=== PATIENT | female | born 1945 | race Caucasian/White ===

== ENCOUNTER → 2016-04-23 | Outpatient (CLI) | payer OTHER ==
--- NOTE | 2016-04-26 13:32 | MAMMOGRAPHY REPORT ---
BILATERAL DIGITAL SCREENING MAMMOGRAM WITH CAD: 04/23/2016 TECHNIQUE: Current study was also evaluated with a Computer Aided Detection (CAD) system. Bilatera l CC and MLO views were obtained. COMPARISON: Comparison is made to exams dated: 11/21/2013 mammogram, 11/11/2010 mammogram - [facility], 11/05/2008, 11/15/2011 mammogram, and 11/10/2009 mammogram - [facility]. BREAST COMPOSITION: There are scattered areas of fibroglandular density in both breasts. FINDINGS: No suspicious masses, calcifications, or areas of architectural distortion are noted in e ither breast. There has been no significant interval change compared to prior exams. IMPRESSION: ACR BI-RADS CATEGORY 1: NEGATIVE There is no mammographic evidence of malignancy. A 1 year screening mammogram is recommended. The p atient will receive written notification of the results. Approximately 10% of breast cancers are not detected with mammography. A negative mammographic repor t should not delay biopsy if a clinically suggestive mass is present. Loreto Lipscomb M.D. ah/:04/23/2016 16:09:32 Donation Specialist: Janina FUNEZ(Frank)(M), [facility] letter sent: Normal 1/2 BI-RADS Code: ACR BI-RADS Category 1: Negative
== END | disposition home or self-care (01) ==
LOC: C.MAMM 10:15
PROVIDERS: ATTEND Nurse Practitioner Family
DX: Z12.31 Encounter for screening mammogram for malignant neoplasm of breast (principal)

== ENCOUNTER 2024-05-29 21:39 | Inpatient (IN) ==
[2024-05-30] MEDS ORDERED: oxyCODONE HCL IR 5 MG TAB (IMMEDIATE RELEASE) PO PRN ×2 (00:28→13:47)
[2024-05-30] MEDS ORDERED: ACETAMINOPHEN 500 MG TAB PO PRN (00:28)
[2024-05-30] MEDS ORDERED: PROMETHAZINE 6.25 MG/50.25 ML BAG IV PRN (00:28)
[2024-05-30] MEDS: Patient's ALLERGY Info needs ENTERED STA (01:23)
[2024-05-30] MEDS ORDERED: HYDROmorphone INJ 0.5 MG/0.5 ML SYR IV PRN ×3 (01:53→13:47)
[2024-05-30 02:05] LABS: Basophils # (auto) 0.03 K/uL (0.00-0.20); Basophils % (auto) 0.3 %; Eosinophils # (auto) 0.12 K/uL (0.00-0.50); Eosinophils % (auto) 1.2 %; Hemoglobin 12.9 g/dl (12.0-16.0); Immature Granulocytes # (auto) 0.04 K/uL (0.01-0.20); Immature Granulocytes % (auto) 0.4 %; Lymphocytes # (auto) 1.33 K/uL (1.20-3.40); Lymphocytes % (auto) 13.3 %; Mean Corpuscular Hemoglobin 30.1 pg (25.0-34.0); Mean Corpuscular Hgb Conc 33.9 g/dL (32.0-36.0); Mean Corpuscular Volume 88.6 fL (80.0-100.0); Mean Platelet Volume 10.8 fL (9.4-12.4); Monocytes # (auto) 1.02 K/uL (0.11-0.59); Monocytes % (auto) 10.2 %; Neutrophils # (auto) 7.46 K/uL (1.40-6.50); Neutrophils % (auto) 74.6 %; Platelet Count 205 K/uL (130-400); RDW Standard Deviation 42.2 fL (36.4-46.3); Red Blood Count 4.29 M/uL (4.20-5.40)
[2024-05-30 02:22] LABS: Albumin Globulin Ratio 1.5 (0.9-2); Albumin Level 3.5 gm/dl (3.4-5.0); BUN Creatinine Ratio 21.4 (10-20); Bilirubin,Total 1.6 mg/dl (0.2-1.0); Calcium 8.9 mg/dl (8.6-10.3); Creatinine Clr Calc Pharmacy 41.7 ml/min; Globulin 2.3 gm/dl (2.5-4.0); Potassium 3.7 mmol/L (3.5-5.1); Total Protein 5.8 gm/dl (6.0-8.3)
[2024-05-30 02:30] LABS: Prothrombin Time 11.1 Seconds (9.0-12.0)
--- NOTE | 2024-05-30 02:38 | XRay Report ---
EXAM: XR chest 1V portable CLINICAL HISTORY: Acute respiratory failure, hyponatremia. TECHNIQUE: An X-ray image of the chest is obtained in AP projection. COMPARISON: No prior studies are available for comparison. FINDINGS: Pulmonary Parenchyma: Exaggerated broncho-vascualr markings bilaterally. No evidence of consolidation, collapse, or focal opacities. No pulmonary nodules are identified. No evidence of pleural effusion or pleural thickening. Heart and Mediastinum: Heart is relatively enlarged. No mediastinal widening or masses. Prominent hilar vasculature. Bony Thorax: Bony thorax appears intact without recent fractures. Right old mid clavicle chronic fracture. Soft Tissues: Soft tissues overlying the chest wall are unremarkable. IMPRESSION: - Exaggerated broncho-vascualr markings bilaterally with Prominent hilar vasculature. may suggest pulmonary congestion. - Mild cardiomegaly. - No consolidation, pneumothorax or pleural effusion. Electronically signed by Baldo Carmona 05-30-2024 02:37 AM
[2024-05-30] MEDS: dilTIAZem HCL 240 MG CAPCR PO SCH (02:46)
--- NOTE | 2024-05-30 03:29 | History & Physical Report ---
Date of Service May 30, 2024 Assessment & Plan (1) Acute pancreatitis: Plan: Biliary pancreatitis Possible calculous cholecystitis Rule out biliary obstruction given abnormal LFTs No sepsis for now hypertension, elevated secondary to illness CRI, possibly chronic anxiety disorder, stable PMR on chronic steroid Rx steroid-induced hyperglycemia rule out DM Admit to medical Zosyn for possible cholecystitis Bowel rest GI consult RE pancreatitis (ED provider already in touch with Dr. Fink who recommends MRCP and General Surgery consultation upon arrival at [facility].) Analgesia, facilitate Cardizem for BP control Hold home diuretic until baseline creatinine established Continue daily prednisone dose, watch out for adrenal insufficiency Check hemoglobin A1c DVT prophylaxis. SCDs re: possible procedure Full code Patient requesting for to be given periodic updates regarding care. Mr. Philipp Carson, contact #[phone]. Text document was generated using We[employer] voice recognition software. It may contain grammatical or spelling errors. Kindly contact undersigned for clarification of any documentation item in question. History of Present Illness Chief Complaint: Abdominal pain Primary Care Provider: TROY Nuno History obtained from patient and records. Medical history significant for hypertension, anxiety disorder, PMR on chronic steroid Rx. 1 day history of achy epigastric discomfort with nausea vomiting. Episode precipitated by sauerkraut intake. Similar episodes over the last few years relieved with rest as per patient. No fever, no chills, no chest pain, no SOB. Patient consulted [facility] alejandra. WBC 14.21, hemoglobin 15.2, hematocrit 41.5, platelets 241 Sodium 137, potassium 5.2, chloride 102, CO2 25, BUN 31, creatinine 1.28, glucose 132 Elevated LFTs and lipase noted. AST 124, ALT 114, alk phos [address] abdomen pelvis showed mild gallbladder wall thickening, small hiatal hernia, diverticulosis without diverticulitis. Right upper quadrant ultrasound showed distended gallbladder with multiple ga llstones and sludge. Mild pericholecystic fluid present with edema in the gallbladder wall measuring 6 mm. CBD measuring 3 mm. Trevino sign not documented. IV Zosyn administered at the ER. Patient transferred to [facility] for specialty services. Patient currently comfortable. Medical History as above Surgical History : Back surgery, tonsillectomy, hysterectomy Family History :DM, heart disease Personal/Social history : Non-smoker, no EtOH intake, retired [employer] employee Allergies Allergy/AdvReac Type Severity Reaction Status Date / Time ciprofloxacin [From Cipro] Allergy Intermediate Itching Verified 05/30/24 06:27 NSAIDS (Non-Steroidal AdvReac Intermediate Chest Pain Verified 05/30/24 01:04 Anti-Inflamma Home Medications Medication Instructions Recorded Confirmed Type citalopram 20 mg tablet 20 mg PO DAILY 05/30/24 05/30/24 History diltiazem HCl 240 mg 240 mg PO DAILY 05/30/24 05/30/24 History capsule,extended release 24 hr ezetimibe 10 mg tablet 10 mg PO DAILY 05/30/24 05/30/24 History hydrochlorothiazide 25 mg tablet 25 mg PO DAILY 05/30/24 05/30/24 History prednisone 5 mg tablet 5 mg PO DAILY 05/30/24 05/30/24 History Past Med/Surg History Problem List (Updated 05/30/24 @ 06:34 by Louie Berrios MD) Acute pancreatitis Cholecystitis with cholelithiasis Social History Smoking Status: Never smoker Tobacco Type: Declines Second Hand Exposure: No; Do You Dip or Chew Tobacco: No; Tobacco Cessation Education Requested by Patient: No Hx Alcohol Use: No Hx Substance Use: No Preferred Language: Hebrew Communication Ability: Effective Ratings Analyst Required: No Beliefs That Will Affect Care: None Current Living Situation: Alone Other Information That Helps Us Care for You: No Feels Safe at Home: Yes Safety Concerns: Feels Safe At This Time Assistive Devices: None Review of Systems Review of Systems: As per HPI, all other systems reviewed and negative Physical Exam Physical Exam: GENERAL: Comfortable, pleasant, obese, no respiratory distress SKIN: Normal color, warm HEENT: [place] palpebral conjunctivae, no ptosis, dry buccal mucosa NECK : Supple, short neck, no tenderness CHEST : CTA, no tenderness HEART : RRR, no obvious murmurs ABDOMEN: Some distention, epigastric tenderness EXTREMITIES : Chronic bilateral LE swelling without tenderness, palpable pulses, no other conspicuous deformities noted NEUROLOGIC : Coherent, no facial asymmetry, no other gross focality Results & Data Results & Data Vital Signs (Past 12 Hours) Vital Signs Temp Pulse Resp BP Pulse Ox O2 Del Method 36.6 C 66 18 167/90 H 95 Room Air 05/30/24 00:25 05/30/24 00:25 05/30/24 00:25 05/30/24 00:25 05/30/24 00:25 05/30/24 00:25 Laboratory Results Laboratory Results WBC 10.00 K/ul (4.8-10.8) 05/30/24 01:45 RBC 4.29 M/uL (4.20-5.40) 05/30/24 01:45 Hgb 12.9 g/dl (12.0-16.0) 05/30/24 01:45 Hct 38.0 % (37.0-47.0) 05/30/24 01:45 MCV 88.6 fL (80.0-100.0) 05/30/24 01:45 MCH 30.1 pg (25.0-34.0) 05/30/24 01:45 MCHC 33.9 g/dL (32.0-36.0) 05/30/24 01:45 RDW Std Deviation 42.2 fL (36.4-46.3) 05/30/24 01:45 RDW Coeff of Danyel 13.0 % (11.5-14.5) 05/30/24 01:45 Plt Count 205 K/uL (130-400) 05/30/24 01:45 MPV 10.8 fL (9.4-12.4) 05/30/24 01:45 Immature Gran % (Auto) 0.4 % 05/30/24 01:45 Neut % (Auto) 74.6 % 05/30/24 01:45 Lymph % (Auto) 13.3 % 05/30/24 01:45 Sully % (Auto) 10.2 % 05/30/24 01:45 Eos % (Auto) 1.2 % 05/30/24 01:45 Baso % (Auto) 0.3 % 05/30/24 01:45 Neut # (Auto) 7.46 K/uL (1.40-6.50) H 05/30/24 01:45 Lymph # (Auto) 1.33 K/uL (1.20-3.40) 05/30/24 01:45 Sully # (Auto) 1.02 K/uL (0.11-0.59) H 05/30/24 01:45 Eos # (Auto) 0.12 K/uL (0.00-0.50) 05/30/24 01:45 Baso # (Auto) 0.03 K/uL (0.00-0.20) 05/30/24 01:45 Immature Gran # (Auto) 0.04 K/uL (0.01-0.20) 05/30/24 01:45 PT 11.1 Seconds (9.0-12.0) 05/30/24 01:45 INR 1.0 (0.9-1.1) 05/30/24 01:45 Sodium 138 mmol/L (136-145) 05/30/24 01:45 Potassium 3.7 mmol/L (3.5-5.1) 05/30/24 01:45 Chloride 106 mmol/L (98-107) 05/30/24 01:45 Carbon Dioxide 26 mmol/L (21-32) 05/30/24 01:45 Anion Gap 6 (3-11) 05/30/24 01:45 BUN 27 mg/dl (6-23) H 05/30/24 01:45 Creatinine 1.26 mg/dl (0.6-1.2) H 05/30/24 01:45 Est Cr Clr Drug Dosing 41.7 ml/min 05/30/24 01:45 eGFR 43.43 05/30/24 01:45 BUN/Creatinine Ratio 21.4 (10-20) H 05/30/24 01:45 Glucose 117 mg/dl (70-99(Fasting)) H 05/30/24 01:45 Calcium 8.9 mg/dl (8.6-10.3) 05/30/24 01:45 Total Bilirubin 1.6 mg/dl (0.2-1.0) H 05/30/24 01:45 AST 116 U/L (13-39) H 05/30/24 01:45 ALT 151 U/L (7-52) H 05/30/24 01:45 Alkaline Phosphatase 83 U/L (34-104) 05/30/24 01:45 Total Protein 5.8 gm/dl (6.0-8.3) L 05/30/24 01:45 Albumin 3.5 gm/dl (3.4-5.0) 05/30/24 01:45 Globulin 2.3 gm/dl (2.5-4.0) L 05/30/24 01:45 Albumin/Globulin Ratio 1.5 (0.9-2) 05/30/24 01:45 Impressions Chest X-Ray 05/30/24 00:43 EXAM: XR chest 1V portable CLINICAL HISTORY: Acute respiratory failure, hyponatremia. TECHNIQUE: An X-ray image of the chest is obtained in AP projection. COMPARISON: No prior studies are available for comparison. FINDINGS: Pulmonary Parenchyma: Exaggerated broncho-vascualr markings bilaterally. No evidence of consolidation, collapse, or focal opacities. No pulmonary nodules are identified. No evidence of pleural effusion or pleural thickening. Heart and Mediastinum: Heart is relatively enlarged. No mediastinal widening or masses. Prominent hilar vasculature. Bony Thorax: Bony thorax appears intact without recent fractures. Right old mid clavicle chronic fracture. Soft Tissues: Soft tissues overlying the chest wall are unremarkable. IMPRESSION: - Exaggerated broncho-vascualr markings bilaterally with Prominent hilar vasculature. may suggest pulmonary congestion. - Mild cardiomegaly. - No consolidation, pneumothorax or pleural effusion. Electronically signed by Baldo Carmona 05-30-2024 02:37 AM
[2024-05-30] MEDS: LACTATED RINGER'S 1,000 ML IV SCH (03:41)
[2024-05-30] MEDS: PIPERACILLIN/TAZOBACTAM 4.5 GM/100 ML BAG IV SCH (04:52)
--- NOTE | 2024-05-30 05:24 | Surgery Consultation ---
Date of Consultation May 30, 2024 Assessment & Plan (1) Cholecystitis with cholelithiasis: Patient is a 78-year-old female with complaints of epigastric abdominal pain who was worked up at [facility] emergency department and was found to have evidence of cholecystitis. WBC was 14 and T bili was also elevated at 2.3. The patient was transferred to our facility for further workup and surgical evaluation. Repeat labs this morning WBC is 10 and Tbili is starting to downtrend to 1.6. The patient is planned for MRCP imaging this morning to further evaluate for possible choledocholithiasis. If MRCP is positive she will need GI consult for possible ERCP. However, if MRCP is negative will proceed with surgical intervention. For now keep patient NPO, IV hydration, IV antibiotics, and pain control.Final surgical plans to follow pending imaging results. as above. pt already feeling better. MRCP neg for CBD stones. Tbili coming down. rec lap radha. discussed risks/options ( bleeding/infection/injury to a bile duct or other structure/dvt etc...). questions answered. will proceed today with lap radha History of Present Illness Reason for Consultation: Cholecystis History of Present Illness Patient is a 78-year-old female who presented to outside hospital for concerns of abdominal pain. The patient states her pain was in her epigastric region and described the pain as "band-like". She states the pain also radiated into her back and between her shoulders as well. She also had associated nausea and vomiting and ultimately went to [facility] emergency room for further evaluation. Upon workup her WBC was 14 and T bili was elevated at 2.3. Imaging was concerning for cholecystitis. The patient was transferred to our facility for further workup for MRCP and surgical evaluation. The patient was seen and evaluated at bedside this morning, she is resting comfortably in bed, VSS, and is nontoxic appearing. The patient continues with epigastric pain however states is better controlled due to medication. She does have a past abdominal surgical history of a partial hysterectomy. Allergies Allergy/AdvReac Type Severity Reaction Status Date / Time ciprofloxacin [From Cipro] Allergy Intermediate Itching Verified 05/30/24 06:27 NSAIDS (Non-Steroidal AdvReac Intermediate Chest Pain Verified 05/30/24 01:04 Anti-Inflamma Home Medications Medication Instructions Recorded Confirmed Type citalopram 20 mg tablet 20 mg PO DAILY 05/30/24 05/30/24 History diltiazem HCl 240 mg 240 mg PO DAILY 05/30/24 05/30/24 History capsule,extended release 24 hr ezetimibe 10 mg tablet 10 mg PO DAILY 05/30/24 05/30/24 History hydrochlorothiazide 25 mg tablet 25 mg PO DAILY 05/30/24 05/30/24 History prednisone 5 mg tablet 5 mg PO DAILY 05/30/24 05/30/24 History Patient History Social History Smoking Status: Never smoker Tobacco Type: Declines Second Hand Exposure: No; Do You Dip or Chew Tobacco: No; Tobacco Cessation Education Requested by Patient: No Hx Alcohol Use: No Hx Substance Use: No Preferred Language: Gabonese Communication Ability: Effective Mechanical Engineering Technician Required: No Beliefs That Will Affect Care: None Current Living Situation: Alone Other Information That Helps Us Care for You: No Feels Safe at Home: Yes Safety Concerns: Feels Safe At This Time Assistive Devices: None Review of Systems Constitutional: as per Subjective / HPI Respiratory: no cough, no dyspnea and no wheezing Cardiovascular: no chest pain and no palpitations Gastrointestinal: + abdominal pain, + nausea and + vomitin g Genitourinary: no dysuria and no hematuria Physical Exam 2 Constitutional: WD/WN, vitals as above Respiratory: normal respiratory effort, lungs clear to auscultation Cardiovascular: RRR, no murmur, no edema Gastrointestinal (Abdomen): abdomen soft, nondistended, +TTP in the RUQ. No rebound, guarding or peritonitis Skin: no rashes, warm and dry Results & Data Vital Signs (Past 12 Hours) Vital Signs Temp Pulse Resp BP Pulse Ox O2 Del Method 05/30/24 02:45 69 18 119/69 95 Room Air 05/30/24 00:25 36.6 C 66 18 167/90 H 95 Room Air 05/30/24 00:25 36.6 C 66 18 167/90 H 95 Room Air Diagnostic Findings CT imaging was performed at outside hospital with results of: Mild gallbladder wall thickening, small hiatal hernia, diverticulosis without evidence of diverticulitis Gallbladder US was performed at outside hospital with results of: gallbladder is distended with multiple gallstones and sludge. Mild pericholecystic fluid with edema in the gallbladder wall measuring 6mm. PG Care Time/CCT Total # of Minutes Spent Total Time Spent with Patient: Total time spent is greater than 50% in coordination of care (as documented) at patient's floor/unit and/or counseling patient: [place] [address] INT INP/OBS CARE MIN Patient Type New Medical Decision Making Straight Forward Diagnoses Cholecystitis with cholelithiasis K80.10
--- NOTE | 2024-05-30 07:22 | Magnetic Resonance Report ---
EXAM: MR MRCP CLINICAL HISTORY: abd pain TECHNIQUE: Multiplanar multisequence magnetic resonance imaging of the abdomen without intravenous contrast. COMPARISON: None. FINDINGS: Liver: Normal size and morphology. Homogeneous signal intensity on T2-weighted images. No focal hepatic lesions. Gallbladder: Innumerable tiny signal voids, each about 2 mm, seen at the gallbladder with a thickened edematous wall measuring 4 mm in maximum thickness with associated fundal small diverticuli suggesting adenomyomatosis with the possibility of acute cholecystitis should be considered however absence of pericholecystic fat stranding makes a diagnosis questionable, clinical correlation and follow-up are advised. Bile Ducts: Intrahepatic and extrahepatic bile ducts are normal in caliber. CBD 5 mm. Common bile duct is normal in caliber with no evidence of strictures or filling defects. No evidence of choledocholithiasis. Pancreas: Normal size and contour. Homogeneous signal intensity on T2-weighted images. No masses or cystic lesions. Pancreatic Duct: Pancreatic duct is normal in caliber. No evidence of ductal dilatation or filling defects. Spleen: Normal size and appearance. Homogeneous signal intensity. Kidneys: Normal size, shape, and position of both kidneys. Homogeneous signal intensity on T2-weighted images. No renal stones, masses, or hydronephrosis. Adrenal Glands: Normal size and morphology bilaterally. No adrenal masses. Surrounding Structures: No evidence of free fluid or abnormal fluid collections in the abdomen. Normal appearance of the visualized bowel loops. IMPRESSION: 1. The pancreas appears normal with no signs of acute pancreatitis. 2. Innumerable tiny gallbladder stones with thickened edematous wall and focal fundal adenomyomatosis with the possibility of acute cholecystitis should be considered. However, absence of pericholecystic fat stranding makes a diagnosis questionable, clinical correlation and follow-up are advised. Electronically signed by Baldo Carmona 05-30-2024 07:22 AM
[2024-05-30 08:35] LABS: Estimated Average Glucose 120 mg/dl; Hemoglobin A1C 5.8 % (4.5-5.6)
[2024-05-30] MEDS: predniSONE 5 MG TAB PO SCH (08:45)
[2024-05-30] MEDS: CITALOPRAM 20 MG TAB PO SCH (08:45)
[2024-05-30] MEDS: EZETIMIBE 10 MG TAB PO SCH (08:45)
[2024-05-30] MEDS ORDERED: fentaNYL citrate PF 100 MCG/2 ML VIAL ONE ×2 (10:32→11:27)
[2024-05-30] MEDS ORDERED: LIDOCAINE 4% MPF LOCAL INJ 5 ML AMP ONE (10:33)
[2024-05-30] MEDS ORDERED: PROPOFOL IV EMULSION 10 MG/ML 20 ML VIAL IV ONE (10:33)
[2024-05-30] MEDS ORDERED: ROCURONIUM BROMIDE 10 MG/ML 5 ML VIAL IV ONE (10:33)
[2024-05-30] MEDS ORDERED: ONDANSETRON INJ 2 MG/ML 2 ML VIAL ONE (10:33)
[2024-05-30] MEDS ORDERED: DEXAMETHASONE SOD INJ 4 MG/ML VIAL ONE (10:33)
[2024-05-30] MEDS ORDERED: LIDOCAINE 2% 2 ML VIAL/AMP(20MG/ML) INFIL ONE (10:33)
--- NOTE | 2024-05-30 10:38 | Gastrointestinal Consultation ---
Date of Consultation May 30, 2024 Assessment & Plan (1) Gallstones: 78 year old female transferred from [facility] for evaluation of cholecystitis and cholelithiasis w report of elevated lipase and transaminases. MRCP w/ mention of many small stones but no stones appreciated in CBD or biliary dilation appreciated. She may have passed a stone. Management of CCY per general surgery Trend LFTs If remain elevated, will need EUS Recall GI as needed I spent a total of 60 minutes on the date of service in review of patient's record, and previously obtained information in person and appropriate medical visit, discussion and education of plan, with patient and/or caregiver, placing orders for tests/referral/procedures as medically necessary and documentation of pertinent clinical information in patient's medical records for their visit today. Supervising Physician Co-Signing Physician Notes I personally saw and examined the patient. I have reviewed the chart and agree with the documentation provided by the MACHINIST MATE including discussion about the assessment, treatment and plan. Briefly, 78 year old female transferred from [facility] for evaluation of cholecystitis and cholelithiasis w report of elevated lipase and transaminases. MRCP w/ mention of many small stones but no stones appreciated in CBD or biliary dilation appreciated. She may have passed a stone. I suspect gallstone pancreatitis as her lipase was elevated into the [facility] ER. She seems to have passed the stone and is already status postcholecystectomy and feels better. Postoperative supportive care. GI will sign off please call us with any questions. History of Present Illness Reason for Consultation: pancreatitis Requesting Physician: Butch Fernandez MD Attending Physician: Butch Fernandez MD History of Present Illness 78 year old female with history of hypertension, anxiety disorder, PMR on chronic steroids who is admitted from [facility] ER for elevated LFTs, lipase and imaging showing stones. General surgery and GI consulted. Pt was seen and evaluated, chart reviewed. She tells me she is feeling okay. Her pain has since improved and is controlled. No nausea/vomiting. No change in bowel habits. No black or bloody stools. WBC 10 PLT 205 Tbili 1.6 AST 116 ALT 151 ALKP 83 MRCP 2024: The pancreas appears normal with no signs of acute pancreatitis. Innumerable tiny gallbladder stones with thickened edematous wall and focal adenomyomatosis with the possibility of acute cholecystitis should be considered. However, absence of pericholecystic fat stranding makes a diagnosis questionable, clinical correlation and follow-up are advised. Allergies Allergy/AdvReac Type Severity Reaction Status Date / Time ciprofloxacin [From Cipro] Allergy Intermediate Itching Verified 05/30/24 10:26 NSAIDS (Non-Steroidal AdvReac Intermediate Chest Pain Verified 05/30/24 10:26 Anti-Inflamma Home Medications Medication Instructions Recorded Confirmed Type citalopram 20 mg tablet 20 mg PO DAILY 05/30/24 05/30/24 History diltiazem HCl 240 mg 240 mg PO DAILY 05/30/24 05/30/24 History capsule,extended release 24 hr ezetimibe 10 mg tablet 10 mg PO DAILY 05/30/24 05/30/24 History hydrochlorothiazide 25 mg tablet 25 mg PO DAILY 05/30/24 05/30/24 History prednisone 5 mg tablet 5 mg PO DAILY 05/30/24 05/30/24 History Patient History Medical History (Updated 05/30/24 @ 10:36 by TROY Red) Nausea and vomiting after administration of anesthetic agent Osteoarthritis Chronic renal disease low function per patient Surgical History (Updated 05/30/24 @ 10:32 by Mildred Ochoa RN) H/O foot surgery right foot near big toe- years after accident with lawnmower History of back surgery History of partial hysterectomy Social History Smoking Status: Never smoker Tobacco Type: Declines Second Hand Exposure: No; Do You Dip or Chew Tobacco: No; Tobacco Cessation Education Requested by Patient: No Hx Alcohol Use: No Hx Substance Use: No Preferred Language: Korean Communication Ability: Effective Salesperson Flowers Required: No Beliefs That Will Affect Care: None Current Living Situation: Alone Other Information That Helps Us Care for You: No Feels Safe at Home: Yes Safety Concerns: Feels Safe At This Time Assistive Devices: None Review of Systems Review of Systems: All other findings negative except as noted in HPI. Physical Exam Constitutional: WD/WN, vitals as above Respiratory: normal respiratory effort, lungs clear to auscultation Cardiovascular: RRR, no murmur, no edema Gastrointestinal (Abdomen): normal bowel sounds, soft, nontender, no hepatosplenomegaly Skin: no rashes, warm and dry Results & Data Vital Signs (Past 12 Hours) Vital Signs Temp Pulse Resp BP Pulse Ox O2 Del Method 05/30/24 08:34 Room Air 05/30/24 07:01 98.2 F 69 16 143/84 H 97 Room Air 05/30/24 02:45 69 18 119/69 95 Room Air 05/30/24 00:25 97.9 F 66 18 167/90 H 95 Room Air 05/30/24 00:25 97.9 F 66 18 167/90 H 95 Room Air PG Care Time/CCT Total # of Minutes Spent Total Time Spent with Patient: Total time spent is greater than 50% in coordination of care (as documented) at patient's floor/unit and/or counseling patient: Coding Level of Care Code 28079 INT INP/OBS CARE 2/55MIN Diagnoses Gallstones K80.20
--- NOTE | 2024-05-30 10:47 | Anesthesiology Consultation ---
Date of Service May 30, 2024 Assessment & Plan Chart Review Chart Review: Acceptable Risk for Surgery ASA ASA3 Proposed Anesthesia Anesthesia Type: General Risk / Benefits Reviewed With: PT / POA / Parent / Guardian, Accepts Plan and Informed Consent Obtained History Surgery Operation Date: 05/30/24 07:00 Proposed Procedures p Laparoscopic Cholecystectomy - Javier Bullock, DO Height/Weight Height: 5 ft 4 in Weight: 100.3 kg Allergies Allergy/AdvReac Type Severity Reaction Status Date / Time ciprofloxacin [From Cipro] Allergy Intermediate Itching Verified 05/30/24 10:26 NSAIDS (Non-Steroidal AdvReac Intermediate Chest Pain Verified 05/30/24 10:26 Anti-Inflamma Medications Home Medications Medication Instructions Recorded Confirmed Last Taken citalopram 20 mg tablet 20 mg PO DAILY 05/30/24 05/30/24 Unknown diltiazem HCl 240 mg 240 mg PO DAILY 05/30/24 05/30/24 Unknown capsule,extended release 24 hr ezetimibe 10 mg tablet 10 mg PO DAILY 05/30/24 05/30/24 Unknown hydrochlorothiazide 25 mg tablet 25 mg PO DAILY 05/30/24 05/30/24 Unknown prednisone 5 mg tablet 5 mg PO DAILY 05/30/24 05/30/24 Unknown Active Medications Generic Name Dose Route Start Last Admin Trade Name Freq PRN Reason Stop Dose Admin Citalopram Hydrobromide 20 mg 05/30/24 09:00 05/30/24 08:45 Citalopram 20 Mg Tab PO 06/29/24 08:59 20 mg DAILY YANA Administration Diltiazem HCl 240 mg 05/30/24 01:55 05/30/24 02:46 Diltiazem Hcl 240 Mg Capcr PO 06/29/24 01:54 240 mg DAILY YANA Administration Ezetimibe 10 mg 05/30/24 09:00 05/30/24 08:45 Ezetimibe 10 Mg Tab PO 06/29/24 08:59 10 mg DAILY YANA Administration Piperacillin Sod/Tazobactam Sod 4.5 gm in 100 mls @ 25 mls/hr 05/30/24 04:00 05/30/24 09:57 Zosyn IV 06/03/24 03:59 Infused Q8H YANA Infusion Protocol Lactated Ringer's 1,000 mls @ 80 mls/hr 05/30/24 02:30 05/30/24 03:41 Lr IV 05/31/24 02:29 80 mls/hr .[id number] YANA Administration Prednisone 5 mg 05/30/24 09:00 05/30/24 08:45 Prednisone 5 Mg Tab PO 06/29/24 08:59 5 mg DAILY AYNA Administration NPO Date Last Intake of Fluids: 05/30/24 Time Last Intake of Fluids: 08:45 Last Intake of Fluids Comment: with meds Date Last Intake of Solids: 05/29/24 Time Last Intake of Solids: 09:00 Past Medical History Medical History (Updated 05/30/24 @ 10:36 by TROY Red) Nausea and vomiting after administration of anesthetic agent Osteoarthritis Chronic renal disease low function per patient Exercise / Class Metabolic Activity II 4-5 Yardwork/Stairs/Walk up hill Past Surgical History Surgical History (Updated 05/30/24 @ 10:32 by Mildred Ochoa RN) H/O foot surgery right foot near big toe- years after accident with lawnmower History of back surgery History of partial hysterectomy Past Anesthesia History No Hx of Anesthesia Complications Social History Smoking Status: Never smoker Do You Dip or Chew Tobacco: No Hx Alcohol Use: No Hx Substance Use: No substance use type: does not use Review of Systems ROS Unobtainable: All systems reviewed & are unremarkable except as noted in HPI & below Physical Exam Vital Signs Last Vital Signs Temp 37.1 C 05/30/24 10:32 Pulse 75 05/30/24 10:32 Resp 20 05/30/24 10:32 BP 167/77 H 05/30/24 10:32 Pulse Ox 97 05/30/24 10:32 O2 Del Method Room Air 05/30/24 10:32 ENMT Thyromental Distance: > or= 3.5 Finger Breadths Mallampati Class: II Neck normal visual inspection Respiratory normal respiratory effort Auscultation: lungs clear to auscultation bilaterally Cardiovascular Rate/Rhythm: regular rate and regular rhythm Testing Laboratory Results 05/30/24 01:45 05/30/24 01:45 PT 11.1 Seconds (9.0-12.0) 05/30/24 01:45 INR 1.0 (0.9-1.1) 05/30/24 01:45 Hemoglobin A1c 5.8 % (4.5-5.6) H 05/30/24 01:45
[2024-05-30] MEDS ORDERED: ATROPINE SULFATE 0.1 MG/ML 10ML SYR IV PRN (10:48)
[2024-05-30] MEDS ORDERED: HYDROmorphone INJ 1 MG/ML SYRINGE IV PRN (10:48)
[2024-05-30] MEDS ORDERED: ePHEDrine sulfate 50 MG/ML AMP IV PRN (10:48)
[2024-05-30] MEDS ORDERED: fentaNYL citrate PF 100 MCG/2 ML VIAL IV PRN (10:48)
[2024-05-30] MEDS ORDERED: ONDANSETRON INJ 2 MG/ML 2 ML VIAL IV PRN (10:48)
[2024-05-30] MEDS ORDERED: SUGAMMADEX SODIUM 200 MG/2 ML VIAL IV ONE (11:08)
[2024-05-30] MEDS: BUPIVACAINE/EPINEPHRINE 0.5% MPF 1:200,000 30 ML VIAL ONE (11:45)
--- NOTE | 2024-05-30 11:55 | Operative Report ---
PG Post Operative Report Pre & Post Diagnosis Operation Date: 05/30/24 07:00 Pre-Op Diagnosis: Cholecystitis with cholelithiasis Post-Op Diagnosis: Cholecystitis with cholelithiasis I identified the patient and participated in the time-out.: Yes Procedure Operation Date: 05/30/24 07:00 Actual Procedures p Laparoscopic Cholecystectomy(Not Applicable) - Javier Bullock DO Surgeon Javier Bullock DO Rn Telehealth ann-marie reyes Estimated Blood Loss 100 Findings Consistent with Post-Op Diagnosis Specimens gallbladder Description of Procedure After informed consent was obtained the patient was taken to the operating room and placed in the supine position. After successful intubation the abdomen was sterilely prepped and draped in usual fashion. A periumbilical incision was made with an 11 blade scalpel and carried down through the soft tissue using electrocautery. The anterior rectus fascia was opened using electrocautery and 2 #0 Vicryl stay sutures were placed. The peritoneum was elevated with hemostats and incised under direct vision using Metzenbaum scissors. A finger sweep was performed and a 12 mm Robertson trocar was placed. The abdomen was insufflated to 18 mmHg. The laparoscope was inserted and the abdomen was examined in 360. The gallbladder was mildly acutely inflamed, otherwise no gross abnormalities were identified. A subxiphoid 5 mm port and 2 right upper quadrant 5 mm ports were placed under direct vision. The patient was placed in a reverse Trendelenburg position and slightly airplaned to the left. The gallbladder was grasped and elevated superiorly and laterally. A [place] dissector was used to take down adhesions around the neck of the gallbladder. The cystic duct was identified and skeletonized. It was clipped twice proximally and once distally and transected using a laparoscopic scissor. In similar fashion the cystic artery was identified and skeletonized clipped and divided. There was a small posterior branch that had to be clipped and divided as well. The gallbladder was removed from the gallbladder fossa with electrocautery. During this process the clip on the neck of the gallbladder came off releasing a small amount of bile and small stones in the right upper quadrant. These were all immediately suctioned and irrigated out. The gallbladder was placed into an Endo Catch bag. Thorough irrigation was performed. At the end of the procedure there was adequate hemostasis and no evidence of any bile leaks. A final look around the abdomen showed no other abnormalities. The gallbladder and trochars were all removed and the abdomen was desufflated. The fascia of the camera port was closed using 0 Vicryl in a [id number] fashion. All the wounds were irrigated and closed using 4-0 Monocryl. Marcaine was injected around them for postoperative analgesia and skin glue used as a dressing. The patient was awaken extubated and transferred to recovery in stable condition. My [employer]CHNICIAN assistant professor of art was present throughout the entire case... helped with prepping the patient. With exposure for trocar placement, as well as retracted the gallbladder throughout the case and also assisted with wound closure and dressing placement. I attest to the content of the Intraoperative Record and any orders documented therein. Any exceptions are noted below.
[2024-05-30] MEDS: PROMETHAZINE HCL 6.25 MG in SODIUM CHLORIDE 0.9% 50 ML IV PRN (12:13)
[2024-05-30] MEDS: DROPERIDOL 5 MG/2 ML VIAL IV STA (12:43)
[2024-05-30] MEDS: PROMETHAZINE HCL INJ 25 MG/ML 1 ML VIAL ONE (13:49)
[2024-05-30] MEDS: SODIUM CHLORIDE 0.9% 50 ML BAG ONE (13:49)
[2024-05-30] MEDS: DROPERIDOL 5 MG/2 ML VIAL ONE (13:50)
--- NOTE | 2024-05-30 13:52 | Anesthesiology Progress Note ---
Date of Service May 30, 2024 Anesthesia Post Procedure Vital Signs Vital Signs: Temp Pulse Pulse Resp BP Pulse Ox O2 Del Method 05/30/24 13:39 36.6 C 78 20 167/81 H 96 Nasal Cannula 05/30/24 13:10 74 16 150/79 H 96 Nasal Cannula 05/30/24 13:00 74 13 156/75 H 97 Nasal Cannula 05/30/24 12:50 36.5 C 74 17 162/77 H 96 Nasal Cannula 05/30/24 12:40 75 13 181/83 H 96 Nasal Cannula 05/30/24 12:30 74 19 174/84 H 95 Nasal Cannula 05/30/24 12:15 83 14 191/101 H 91 Nasal Cannula 05/30/24 12:05 36.3 C L 84 14 172/79 H 93 Oxymask 05/30/24 10:32 37.1 C 75 20 167/77 H 97 Room Air 05/30/24 08:34 Room Air 05/30/24 07:01 36.8 C 69 16 143/84 H 97 Room Air 05/30/24 02:45 69 18 119/69 95 Room Air 05/30/24 00:25 36.6 C 66 18 167/90 H 95 Room Air 05/30/24 00:25 36.6 C 66 18 167/90 H 95 Room Air O2 Flow Rate 05/30/24 13:39 2 05/30/24 13:10 2 05/30/24 13:00 2 05/30/24 12:50 2 05/30/24 12:40 2 05/30/24 12:30 2 05/30/24 12:15 2 05/30/24 12:05 6 05/30/24 10:32 05/30/24 08:34 05/30/24 07:01 05/30/24 02:45 05/30/24 00:25 05/30/24 00:25 Transfer of Care Handoff Completed per policy Notes Mental Status: alert / awake / arousable and participated in evaluation Nausea / Vomiting: adequately controlled Pain: adequately controlled Airway Patency, RR, SpO2: stable & adequate BP & HR: stable & adequate Hydration State: stable & adequate Anesthetic Complications: no major complications apparent and Pt Satisfied with anesthetic care
[2024-05-31 08:19] LABS: Hematocrit (blood only) 37.6 % (37.0-47.0); Mean Corpuscular Hemoglobin 30.8 pg (25.0-34.0); Mean Corpuscular Hgb Conc 34.6 g/dL (32.0-36.0); Mean Corpuscular Volume 89.1 fL (80.0-100.0); Mean Platelet Volume 11.2 fL (9.4-12.4); Platelet Count 191 K/uL (130-400); RDW Coefficient of Variation 12.9 % (11.5-14.5); RDW Standard Deviation 42.4 fL (36.4-46.3); Red Blood Count 4.22 M/uL (4.20-5.40); White Blood Count 16.08 K/ul (4.8-10.8)
[2024-05-31 08:42] LABS: Albumin Globulin Ratio 1.5 (0.9-2); Albumin Level 3.5 gm/dl (3.4-5.0); BUN Creatinine Ratio 17.1 (10-20); Bilirubin,Total 0.9 mg/dl (0.2-1.0); Globulin 2.3 gm/dl (2.5-4.0); Magnesium 2.1 mg/dl (1.7-2.4); Phosphorus 2.6 mg/dl (2.5-4.9); Potassium 3.7 mmol/L (3.5-5.1); Total Protein 5.8 gm/dl (6.0-8.3)
[2024-05-31 08:52] LABS: Basophils # (auto) 0.02 K/uL (0.00-0.20); Basophils % (auto) 0.1 %; Eosinophils # (auto) 0.02 K/uL (0.00-0.50); Eosinophils % (auto) 0.1 %; Immature Granulocytes # (auto) 0.12 K/uL (0.01-0.20); Immature Granulocytes % (auto) 0.7 %; Lymphocytes # (auto) 0.64 K/uL (1.20-3.40); Monocytes # (auto) 0.62 K/uL (0.11-0.59); Monocytes % (auto) 3.9 %; Neutrophils # (auto) 14.66 K/uL (1.40-6.50); Neutrophils % (auto) 91.2 %
--- NOTE | 2024-05-31 10:28 | Surgery Progress Note ---
Date of Service May 31, 2024 Assessment & Plan (1) Hx laparoscopic cholecystectomy: Plan: POD [address] Bullock expected post surgical discomfort tolerating reg diet no n/v increase in WBC noted, likely reactive post surgical , afebrile port sites CDI no s/s infection LFT down trending pt stable for d/c from gen surg standpoint, f/u op in office 1-2 weeks call with questions/concerns Admission and Anticipated Discharge Date Admission Date: May 30, 2024 Subjective expected post surgical discomfort denies n/v , tolerating reg diet Review of Systems Constitutional: no fever and no chills Respiratory: no dyspnea Cardiovascular: no chest pain Gastrointestinal: no abdominal pain, no nausea and no vomiting Genitourinary: no dysuria Psychiatric: no confusion Physical Exam Constitutional: cooperative and comfortable; no acute distress Respiratory: normal respiratory effort; no respiratory distress Cardiovascular: Rate/Rhythm: regular rate Gastrointestinal (Abdomen): Inspection/Auscultation: + abdominal surgical incision (dermabond CDI ); abdomen not distended Percussion/Palpation: abdomen soft Psychiatric: Orientation: alert and oriented x 3 Results & Data Vital Signs (Past 12 Hours) Vital Signs Temp Pulse Pulse Resp BP BP Pulse Ox 05/31/24 07:42 97.5 F L 71 18 145/78 H 95 05/31/24 03:00 97.5 F L 75 18 146/83 H 94 05/30/24 23:18 98.2 F 70 18 138/79 96 O2 Del Method 05/31/24 07:42 Room Air 05/31/24 03:00 Room Air 05/30/24 23:18 Room Air Results CBC w Diff Results: RBC 4.22 M/uL (4.20-5.40) 05/31/24 WBC 16.08 K/ul (4.8-10.8) H 05/31/24 Hgb 13.0 g/dl (12.0-16.0) 05/31/24 Hct 37.6 % (37.0-47.0) 05/31/24 MCV 89.1 fL (80.0-100.0) 05/31/24 MCH 30.8 pg (25.0-34.0) 05/31/24 MCHC 34.6 g/dL (32.0-36.0) 05/31/24 RDW Standard Deviation 42.4 fL (36.4-46.3) 05/31/24 RDW Coefficient of Variation 12.9 % (11.5-14.5) 05/31/24 Plt Count 191 K/uL (130-400) 05/31/24 MPV 11.2 fL (9.4-12.4) 05/31/24 Neutrophils (%) (Auto) 91.2 % 05/31/24 Lymphocytes (%) (Auto) 4.0 % 05/31/24 Monocytes # (Auto) 0.62 K/uL (0.11-0.59) H 05/31/24 Eosinophils # (Auto) 0.02 K/uL (0.00-0.50) 05/31/24 Immature Granulocyte % (Auto) 0.7 % 05/31/24 Neutrophils # (Auto) 14.66 K/uL (1.40-6.50) H 05/31/24 Lymphocytes # (Auto) 0.64 K/uL (1.20-3.40) L 05/31/24 Monocytes # (Auto) 0.62 K/uL (0.11-0.59) H 05/31/24 Eosinophils # (Auto) 0.02 K/uL (0.00-0.50) 05/31/24 Basophils # (Auto) 0.02 K/uL (0.00-0.20) 05/31/24 Immature Granulocyte # (Auto) 0.12 K/uL (0.01-0.20) 5 PG Care Time/CCT Total # of Minutes Spent Total Time Spent with Patient: Total time spent is greater than 50% in coordination of care (as documented) at patient's floor/unit and/or counseling patient: Coding Level of Care Code 87205 Post Operative Follow-Up Diagnoses Hx laparoscopic cholecystectomy Z90.49
[2024-05-31 11:19] VITALS: BP 134/68; PULSE 73; RESP 16; TEMP 98.4; O2SAT 94
--- NOTE | 2024-05-31 12:53 | Discharge Summary ---
Date of Service May 31, 2024 Admission HPI Per Admitting Provider History obtained from patient and records. Medical history significant for hypertension, anxiety disorder, PMR on chronic steroid Rx. 1 day history of achy epigastric discomfort with nausea vomiting. Episode precipitated by sauerkraut intake. Similar episodes over the last few years relieved with rest as per patient. No fever, no chills, no chest pain, no SOB. Patient consulted [facility] ER tonight. WBC 14.21, hemoglobin 15.2, hematocrit 41.5, platelets 241 Sodium 137, potassium 5.2, chloride 102, CO2 25, BUN 31, creatinine 1.28, glucose 132 Elevated LFTs and lipase noted. AST 124, ALT 114, alk phos [address] abdomen pelvis showed mild gallbladder wall thickening, small hiatal hernia, diverticulosis without diverticulitis. Right upper quadrant ultrasound showed distended gallbladder with multiple gallstones and sludge. Mild pericholecystic fluid present with edema in the gallbladder wall measuring 6 mm. CBD measuring 3 mm. Trevino sign not documented. IV Zosyn administered at the ER. Patient transferred to [facility] for specialty services. Patient currently comfortable. Medical History as above Surgical History : Back surgery, tonsillectomy, hysterectomy Family History :DM, heart disease Personal/Social history : Non-smoker, no EtOH intake, retired [employer] employee Admission Exam Per Admitting Provider GENERAL: Comfortable, pleasant, obese, no respiratory distress SKIN: Normal color, warm HEENT: [place] palpebral conjunctivae, no ptosis, dry buccal mucosa NECK : Supple, short neck, no tenderness CHEST : CTA, no tenderness HEART : RRR, no obvious murmurs ABDOMEN: Some distention, epigastric tenderness EXTREMITIES : Chronic bilateral LE swelling without tenderness, palpable pulses, no other conspicuous deformities noted NEUROLOGIC : Coherent, no facial asymmetry, no other gross focality Principal Diagnosis Acute cholecystitis s/p laparoscopic cholecystectomy Discharge Exam GENERAL: Obese F in NAD SKIN: Normal color, warm HEENT: NC/AT. EOMI. NECK : Supple CHEST : CTA, no tenderness HEART : RRR, no obvious murmurs ABDOMEN: mild epigastric tenderness- s/p surgery, abdomen soft EXTREMITIES : Chronic mild bilateral LE swelling without tenderness NEUROLOGIC : Coherent, no facial asymmetry, no other gross focality Discharge Data Allergies Allergy/AdvReac Type Severity Reaction Status Date / Time ciprofloxacin [From Cipro] Allergy Intermediate Itching Verified 05/30/24 10:26 NSAIDS (Non-Steroidal AdvReac Intermediate Chest Pain Verified 05/30/24 10:26 Anti-Inflamma Consultations 05/30/24 01:53 Consult Gastroenterology Routine Consult General Surgery Routine Procedures Performed Operation Date: 05/30/24 07:00 Actual Procedures p Laparoscopic Cholecystectomy(Not Applicable) - Javier Bullock, Ordered Studies 05/30/24 01:53 MR MRCP Routine FINDINGS: Liver: Normal size and morphology. Homogeneous signal intensity on T2-weighted images. No focal hepatic lesions. Gallbladder: Innumerable tiny signal voids, each about 2 mm, seen at the gallbladder with a thickened edematous wall measuring 4 mm in maximum thickness with associated fundal small diverticuli suggesting adenomyomatosis with the possibility of acute cholecystitis should be considered however absence of pericholecystic fat stranding makes a diagnosis questionable, clinical correlation and follow-up are advised. Bile Ducts: Intrahepatic and extrahepatic bile ducts are normal in caliber. CBD 5 mm. Common bile duct is normal in caliber with no evidence of strictures or filling defects. No evidence of choledocholithiasis. Pancreas: Normal size and contour. Homogeneous signal intensity on T2-weighted images. No masses or cystic lesions. Pancreatic Duct: Pancreatic duct is normal in caliber. No evidence of ductal dilatation or filling defects. Spleen: Normal size and appearance. Homogeneous signal intensity. Kidneys: Normal size, shape, and position of both kidneys. Homogeneous signal intensity on T2-weighted images. No renal stones, masses, or hydronephrosis. Adrenal Glands: Normal size and morphology bilaterally. No adrenal masses. Surrounding Structures: No evidence of free fluid or abnormal fluid collections in the abdomen. Normal appearance of the visualized bowel loops. IMPRESSION: 1. The pancreas appears normal with no signs of acute pancreatitis. 2. Innumerable tiny gallbladder stones with thickened edematous wall and focal fundal adenomyomatosis with the possibility of acute cholecystitis should be considered. However, absence of pericholecystic fat stranding makes a diagnosis questionable, clinical correlation and follow-up are advised. Hospital Course (1) Acute pancreatitis: Biliary pancreatitis Calculous cholecystitis Zosyn while inpt for possible cholecystitis. Per surgery, no need to DC on abx. GI and General surgery consulted GI - Briefly, 78 year old female transferred from [facility] for evaluation of cholecystitis and cholelithiasis w report of elevated lipase and transaminases. MRCP w/ mention of many small stones but no stones appreciated in CBD or biliary dilation appreciated. She may have passed a stone. I suspect gallstone pancreatitis as her lipase was [facility] ER. She seems to have passed the stone and is already status postcholecystectomy and feels better. Postoperative supportive care. GI will sign off please call us with any questions. Pt now s/p cholecystectomy on 05/30/2024 Pt is doing well and tolerating diet. Plan to follow up with surgery as outpt in 1-2 weeks. Chronic conditions: hypertension, cont. to monitor BP, Hold home diuretic for now CRI, now Cr normal - down to 1 anxiety disorder, stable PMR on chronic steroid Rx Total Time Total Time Spent Total Time Spent (In Minutes): 40 Discharge Plan Discharge Items Patient Disposition: Home - Self-Care Reason For Visit: PANCREATITIS, CHOLECYSTITIS Discharge Diagnosis: Acute cholecystitis s/p laparoscopic cholecystectomy Pancreatitis Activity: As commented below Lifting: No more than 10 pounds Bathing Comment: you can shower. No soaking in pools/baths for 2 weeks Exercise/Sports: Wait until after follow-up appointment Driving/Machine Use: no driving if taking narcotic pain medication Non-emergency contact: Surgeon Call non-emergency contact if: you have any medication questions, your symptoms worsen, you have a fever, your temperature is above 101.5, your wound has increased redness, your wound has increased drainage and your wound pain has increased Follow-up/Referrals: Javier Bullock DO [Surgeon] - 06/13/24 2:00 pm (call office for follow up in 1-2 weeks ) Gemini Cheatham, [email or web address]. [Primary Care Provider] - (Please call the office and schedule a follow appointment for 1 week after discharge.) Diet: Low Fat Addtl Attending Provider Instructions: Follow up with your primary care doctor and general surgeon. You have surgical glue called dermabond on your surgical site incisions. You may shower with this on. This will tend to come off within a couple of weeks. Do not pick at it. For pain, you can take tylenol 1,000 mg up to three times a day. For more severe pain, you can take oxycodone as needed as prescribed. For constipation, take stool softener - senna or miralax, you can obtain these over the counter. Slowly advance your diet. Make sure to stay well hydrated. Pending Studies at Discharge: Yes Studies:: surgical pathology Stand-Alone Forms: My [facility], Smoking Cessation Medications and DC Order Prescriptions: New oxycodone 5 mg Tablet 5 mg PO Q4H PRN (Reason: pain) Qty: 7 0RF Continued diltiazem HCl 240 mg capsule,extended release 24hr 240 mg PO DAILY citalopram 20 mg tablet 20 mg PO DAILY prednisone 5 mg tablet 5 mg PO DAILY ezetimibe 10 mg tablet 10 mg PO DAILY Held hydrochlorothiazide 25 mg tablet 25 mg PO DAILY Hold Instructions: Resume on 06/07/24. until seen by your primary care doctor Discharge Orders: Discharge Order (Routine); Ordered 05/31/24 Ordered By: Butch Fernandez Admission Data Admit Date/Time: 05/30/24 00:31 Attending Provider: Butch Fernandez Admit Provider: Louie Berrios Primary Care Provider: Gemini Cheatham Other Providers: Zoltan Malhotra; Adam Fink; Javier Bullock
== END 2024-05-31 14:07 | disposition home or self-care (01) | DRG 417 ==
LOC: 3N 05-30 00:31 → SUATTDRO 05-30 00:31